=== PATIENT | female | born 1990 | race Caucasian/White ===

== ENCOUNTER 2018-11-18 20:20 | Inpatient (IN) | payer OTHER ==
[2018-11-18] MEDS: LACTATED RINGER'S 1,000 ML IV ×2 (21:10→22:32)
[2018-11-18 21:30] LABS: ADD MAN DIFF? NO
[2018-11-18] MEDS ORDERED: BUTORPHANOL 2 MG INJ IV (21:30)
[2018-11-18] MEDS ORDERED: LIDOCAINE 1% (MPF) 30 ML INJ INJ (21:30)
[2018-11-18] MEDS ORDERED: CARBOPROST 250 MCG INJ IM (21:30)
[2018-11-18] MEDS ORDERED: OXYTOCIN 30 UNITS/LR 500 ML IV ×2 (21:30)
[2018-11-18] MEDS ORDERED: METHYLERGONOVINE 0.2 MG INJ IM (21:30)
[2018-11-18] MEDS ORDERED: MISOPROSTOL 200 MCG TAB PR (21:30)
[2018-11-18 21:32] LABS: WHITE BLOOD COUNT 10.1 10^3/ul (4.8-10.8)
[2018-11-18 21:32] LABS: BASOPHILS % 0.2 % (0.0-2.0); EOSINOPHILS # 0.1 10^3/ul (0.0-0.5); EOSINOPHILS % 1.2 % (0.0-7.0); HEMOGLOBIN 11.3 g/dl (12.0-16.0); LYMPHOCYTES # 3.1 10^3/ul (0.8-2.9); MEAN CORPUSCULAR HEMOGLOBIN 29.9 pg (29.0-33.0); MEAN CORPUSCULAR HGB CONC 33.2 g/dl (32.0-37.0); MEAN CORPUSCULAR VOLUME 89.9 fl (82.0-101.0); MEAN PLATELET VOLUME 11.1 fl (7.4-10.4); MONOCYTE # 0.5 10^3/ul (0.3-0.9); MONOCYTES % 4.9 % (0.0-11.0); NEUTROPHIL # 6.3 10^3/ul (1.6-7.5); NEUTROPHILS % 62.2 % (39.0-77.0); PLATELET COUNT 263 10^3/UL (140-415); RED BLOOD COUNT 3.78 10^6/ul (4.20-5.40); RED CELL DISTRIBUTION WIDTH 13.2 % (11.5-14.5)
[2018-11-18 21:48] LABS: ADD UMIC NO; UR ASCORBIC ACID NEGATIVE (NEGATIVE); UR BILIRUBIN (Dip) NEGATIVE (NEGATIVE); UR BLOOD (Dip) NEGATIVE (NEGATIVE); UR CLARITY CLEAR (CLEAR); UR COLOR STRAW (YELLOW); UR GLUCOSE (Dip) NEGATIVE (NEGATIVE); UR KETONES (Dip) NEGATIVE (NEGATIVE); UR LEUKOCYTE ESTERASE (Dip) NEGATIVE Leu/ul (NEGATIVE); UR NITRITE (Dip) NEGATIVE (NEGATIVE); UR SPECIFIC GRAVITY (Dip) 1.006 (1.003-1.030); UR TOTAL PROTEIN (Dip) NEGATIVE (NEGATIVE); UR UROBILINOGEN (Dip) NEGATIVE (NEGATIVE)
[2018-11-18 21:50] LABS: ALANINE AMINOTRANSFERASE 7 IU/L (13-69); ALBUMIN 4.1 g/dl (3.3-4.9); ALBUMIN/GLOBULIN RATIO 1.02; ALKALINE PHOSPHATASE 294 IU/L (42-121); ANION GAP 11 (5-13); ASPARTATE AMINO TRANSFERASE 23 IU/L (15-46); BILIRUBIN,INDIRECT 0.4 mg/dl (0-1.1); BILIRUBIN,TOTAL 0.4 mg/dl (0.2-1.3); BLOOD UREA NITROGEN 5 mg/dl (7-20); CALCIUM 9.8 mg/dl (8.4-10.2); CARBON DIOXIDE 22 mmol/L (21-31); CHLORIDE 104 mmol/L (97-110); CREATININE 0.42 mg/dl (0.44-1.00); Estimated GFR > 60 mL/min (>60); GLUCOSE 79 mg/dl (70-220); POTASSIUM 3.7 mmol/L (3.5-5.1); SODIUM 137 mmol/L (135-144); TOTAL PROTEIN 8.1 g/dl (6.1-8.1); URIC ACID 2.6 mg/dl (3.1-7.9)
[2018-11-18 21:54] LABS: INR 0.84; PROTIME 11.6 Sec (11.9-14.9); PT RATIO 0.9
[2018-11-18 22:22] LABS: HEPATITIS B SURFACE ANTIGEN NEGATIVE (NEGATIVE)
[2018-11-18] MEDS ORDERED: MINERAL OIL LIGHT 10 ML VIAL TOP (23:30)
[2018-11-19] MEDS: LACTATED RINGER'S 1,000 ML IV ×3 (01:42→09:30)
[2018-11-19] MEDS ORDERED: FENTAnyl 2MCG/ML-ROPIV 0.2% 100 ML (02:28)
[2018-11-19] MEDS ORDERED: ONDANSETRON 4 MG INJ IV (02:30)
[2018-11-19] MEDS ORDERED: NALOXONE (0.4 MG/ML) INJ IV (02:30)
[2018-11-19] MEDS: OXYTOCIN 30 UNITS/LR 500 ML IV ×2 (11:18→17:47)
[2018-11-19] MEDS: FENTAnyl 2MCG/ML-ROPIV 0.2% 100 ML BAG EPI (12:29)
[2018-11-19 15:08] LABS: RAPID PLASMA REAGIN NONREACTIVE (NR)
[2018-11-19] MEDS: IBUPROFEN 600 MG TAB PO ×2 (18:54→23:29)
[2018-11-19] MEDS ORDERED: ZOLPIDEM 5 MG TAB PO ×3 (21:30)
[2018-11-19] MEDS ORDERED: WITCH HAZEL/GLYCERIN PAD PR ×2 (21:30)
[2018-11-19] MEDS ORDERED: MISOPROSTOL 200 MCG TAB PR ×3 (21:30)
[2018-11-19] MEDS ORDERED: SENNA/DOCUSATE NA (8.6MG/50MG) TAB PO ×2 (21:30)
[2018-11-19] MEDS ORDERED: OXYTOCIN 30 UNITS/LR 500 ML IV ×3 (21:30)
[2018-11-19] MEDS ORDERED: CARBOPROST 250 MCG INJ IM ×3 (21:30)
[2018-11-19] MEDS ORDERED: METHYLERGONOVINE 0.2 MG INJ IM ×3 (21:30)
[2018-11-19] MEDS ORDERED: BENZOCAINE 20% 56 ML SPRAY TOP ×2 (21:30)
[2018-11-19] MEDS ORDERED: LANOLIN HPA 1 PKT TOP ×2 (21:30)
[2018-11-19] MEDS ORDERED: OXYCODONE/ASPIRIN (4.88/325) TAB PO ×4 (21:30)
[2018-11-19] MEDS: SENNA/DOCUSATE NA (8.6MG/50MG) TAB PO (21:55)
[2018-11-19] MEDS: WITCH HAZEL/GLYCERIN PAD PR (21:55)
[2018-11-19] MEDS: LANOLIN HPA 1 PKT TOP (21:55)
[2018-11-19] MEDS: BENZOCAINE 20% 56 ML SPRAY TOP (21:55)
[2018-11-20] MEDS ORDERED: IBUPROFEN 600 MG TAB PO ×3
[2018-11-20] MEDS: OXYCODONE/ASPIRIN (4.88/325) TAB PO ×2 (03:36→20:56)
[2018-11-20] MEDS: IBUPROFEN 600 MG TAB PO ×3 (05:42→18:06)
[2018-11-20 06:50] LABS: ADD MAN DIFF? NO
[2018-11-20 06:57] LABS: WHITE BLOOD COUNT 9.3 10^3/ul (4.8-10.8)
[2018-11-20 06:57] LABS: BASOPHILS % 0.2 % (0.0-2.0); EOSINOPHILS # 0.1 10^3/ul (0.0-0.5); EOSINOPHILS % 1.3 % (0.0-7.0); HEMATOCRIT 29.9 % (37.0-47.0); HEMOGLOBIN 9.9 g/dl (12.0-16.0); LYMPHOCYTES # 2.4 10^3/ul (0.8-2.9); LYMPHOCYTES % 25.6 % (15.0-51.0); MEAN CORPUSCULAR HEMOGLOBIN 30.1 pg (29.0-33.0); MEAN CORPUSCULAR HGB CONC 33.1 g/dl (32.0-37.0); MEAN CORPUSCULAR VOLUME 90.9 fl (82.0-101.0); MEAN PLATELET VOLUME 11.2 fl (7.4-10.4); MONOCYTE # 0.4 10^3/ul (0.3-0.9); MONOCYTES % 4.4 % (0.0-11.0); NEUTROPHIL # 6.4 10^3/ul (1.6-7.5); NEUTROPHILS % 68.1 % (39.0-77.0); PLATELET COUNT 222 10^3/UL (140-415); RED BLOOD COUNT 3.29 10^6/ul (4.20-5.40); RED CELL DISTRIBUTION WIDTH 13.4 % (11.5-14.5)
[2018-11-20] MEDS: SENNA/DOCUSATE NA (8.6MG/50MG) TAB PO ×2 (09:00→20:52)
[2018-11-21] MEDS: IBUPROFEN 600 MG TAB PO ×3 (00:22→11:45)
[2018-11-21] MEDS: SENNA/DOCUSATE NA (8.6MG/50MG) TAB PO (09:02)
[2018-11-21] MEDS: DIPHTH/TET/ACEL PERTUSS (ADULT) 0.5 ML VIAL IM* (09:03)
== END 2018-11-21 15:01 | disposition home or self-care (01) | DRG 807 ==
LOC: OBT 20:20 → L-D 20:21 → PP1 11-19 20:20 → L-D 20:24 → OBT 20:56 → L-D 20:56
PROC: 10E0XZZ Delivery of Products of Conception, External Approach (ICD-10-PCS; principal; 2018-11-19)
DX: O69.1XX0 Labor and delivery complicated by cord around neck, with compression, not applicable or unspecified (principal); Z37.0 Single live birth; Z3A.37 37 weeks gestation of pregnancy
CPT/HCPCS: 62319; 80053; 81003; 84560; 85025; 85384; 85610; 85730; 86592; 86850; 86900; 86901; 87340; 90686

== ENCOUNTER 2018-12-07 10:01 | Emergency (ER) | payer OTHER | END 2018-12-07 12:09 | disposition home or self-care (01) | LOC: FTE 10:01 | DX: O99.355 Diseases of the nervous system complicating the puerperium (principal); G51.0 Bell's palsy | CPT/HCPCS: 99283; Z7502 ==

== ENCOUNTER 2019-03-17 05:47 | Day surgery (SDC) | payer OTHER ==
[2019-03-17 06:54] LABS: ADD MAN DIFF? NO
[2019-03-17] MEDS: ACETAMINOPHEN 500 MG TAB PO (06:54)
[2019-03-17 07:00] LABS: WHITE BLOOD COUNT 9.5 10^3/ul (4.8-10.8)
[2019-03-17 07:00] LABS: BASOPHILS % 0.3 % (0.0-2.0); EOSINOPHILS # 0.2 10^3/ul (0.0-0.5); EOSINOPHILS % 2.3 % (0.0-7.0); HEMATOCRIT 37.2 % (37.0-47.0); HEMOGLOBIN 12.6 g/dl (12.0-16.0); LYMPHOCYTES # 4.1 10^3/ul (0.8-2.9); LYMPHOCYTES % 42.8 % (15.0-51.0); MEAN CORPUSCULAR HEMOGLOBIN 30.7 pg (29.0-33.0); MEAN CORPUSCULAR HGB CONC 33.9 g/dl (32.0-37.0); MEAN CORPUSCULAR VOLUME 90.7 fl (82.0-101.0); MEAN PLATELET VOLUME 10.2 fl (7.4-10.4); MONOCYTE # 0.5 10^3/ul (0.3-0.9); MONOCYTES % 4.8 % (0.0-11.0); NEUTROPHIL # 4.7 10^3/ul (1.6-7.5); NEUTROPHILS % 49.3 % (39.0-77.0); PLATELET COUNT 263 10^3/UL (140-415); RED CELL DISTRIBUTION WIDTH 14.1 % (11.5-14.5)
[2019-03-17] MEDS ORDERED: morphine 2 MG INJ IV ×2 (07:00)
[2019-03-17] MEDS ORDERED: LABETALOL HCL 20MG INJ IV (07:00)
[2019-03-17] MEDS ORDERED: HYDROmorphONE 1 MG/5 ML IV SYRINGE IV ×3 (07:00)
[2019-03-17] MEDS ORDERED: DIPHENHYDRAMINE 50 MG INJ IV (07:00)
[2019-03-17] MEDS ORDERED: OXYCODONE/ACETAMINOPHEN (5/325) TAB PO ×2 (07:00)
[2019-03-17] MEDS ORDERED: ALBUTEROL 0.083% (NEB) 2.5 MG/3 ML AMP HHN (07:00)
[2019-03-17] MEDS ORDERED: FENTAnyl 50 MCG/ML VIAL IV ×2 (07:00)
[2019-03-17] MEDS ORDERED: PROPOFOL 40 ML (07:21)
[2019-03-17] MEDS ORDERED: ROCURONIUM 50 MG INJ (07:21)
[2019-03-17] MEDS ORDERED: CEFAZOLIN 1 GM INJ (07:21)
[2019-03-17] MEDS ORDERED: LIDOCAINE 2% (SDV) 5 ML INJ (07:21)
[2019-03-17] MEDS ORDERED: MIDAZOLAM 1 MG/ML 2 ML INJ (07:23)
[2019-03-17] MEDS ORDERED: ONDANSETRON 4 MG INJ (07:23)
[2019-03-17] MEDS ORDERED: FENTAnyl 50 MCG/ML VIAL (07:23)
[2019-03-17] MEDS ORDERED: DEXAMETHASONE 4 MG/ML 5 ML INJ (07:35)
[2019-03-17] MEDS ORDERED: SUGAMMADEX SODIUM 200 MG/2 ML VIAL IV (08:12)
[2019-03-17] MEDS: MEPERIDINE 25 MG INJ IV (08:57)
[2019-03-17] MEDS: ONDANSETRON 4 MG INJ IV (08:57)
== END 2019-03-17 10:15 | disposition home or self-care (01) ==
LOC: SDS 05:47
DX: Z30.2 Encounter for sterilization (principal); G51.0 Bell's palsy
CPT/HCPCS: 58670; 85025; 86850; 86900; 86901